=== PATIENT | male | born 1975 | race Caucasian/White ===

== ENCOUNTER 2017-01-17 14:13 | Emergency (ER) | payer OTHER ==
[2017-01-17 14:27] VITALS: RESP 18
--- NOTE | 2017-01-17 14:48 | EDPHY ---
H & P Stated Complaint: left groin pain and swelling for 2 days. Time Seen by Provider: 01/17/17 14:48 HPI/ROS: CHIEF COMPLAINT: Left testicular pain, swelling and inguinal pain HISTORY OF PRESENT ILLNESS: The patient presents the ED with a 2 day history of left testicular pain, posterior testicular tenderness and inguinal pain. The patient denies any hematuria or dysuria. The patient denies any recent sexual intercourse. The patient denies any urethral discharge. The patient has no complaints of flank pain, abdominal pain, history of trauma, prolonged bike riding, prolonged immobility or other genitourinary trauma. He denies any recent surgical history. He does have a history of bilateral hip arthroplasty 5 years ago. REVIEW OF SYSTEMS: A comprehensive 10 point review of systems is otherwise negative aside from elements mentioned in the history of present illness. Source: Patient - Personal History Current Tetanus Diphtheria and Acellular Pertussis (TDAP): Unsure - Medical/Surgical History Hx Asthma: No Hx Chronic Respiratory Disease: No Hx Diabetes: No Hx Cardiac Disease: No Hx Renal Disease: No Hx Cirrhosis: No Hx Alcoholism: No Hx HIV/AIDS: No Hx Splenectomy or Spleen Trauma: No Other PMH: Anxiety, depression. - Social History Smoking Status: Current some day smoker - Physical Exam Exam: General Appearance: Alert, no distress Eyes: Pupils equal and round no pallor or injection ENT, Mouth: Mucous membranes moist Respiratory: There are no retractions, lungs are clear to auscultation Cardiovascular: Regular rate and rhythm Gastrointestinal: Abdomen is soft and nontender, no masses, bowel sounds normal Genitourinary: Left epididymal tenderness, normal testicular lie, no clinical evidence of torsion Neurological: A&O, normal motor function, normal sensory exam, normal cranial nerves Skin: Warm and dry, no rashes Musculoskeletal: Neck is supple nontender Extremities: symmetrical, full range of motion Constitutional: Initial Vital Signs Temperature (C) 36.7 C 01/17/17 14:24 Heart Rate 61 01/17/17 14:24 Respiratory Rate 18 01/17/17 14:24 Blood Pressure 110/78 01/17/17 14:24 O2 Sat (%) 97 01/17/17 14:24 O2 Delivery Mode Room Air Allergies/Adverse Reactions: Sulfa (Sulfonamide Antibiotics) Allergy (Verified 01/17/17 14:27) Home Medications: Medication Instructions Recorded Fluconazole [Diflucan] 200 mg PO ONCE #1 tablet 01/17/17 Trazodone HCl 01/17/17 Trileptal 01/17/17 levOFLOXACIN [Levaquin] 500 mg PO DAILY #10 tab 01/17/17 Medical Decision Making - Diagnostics Imaging Results: Imaging Impressions Testicular Ultrasound 01/17/17 14:53 IMPRESSION: 1. Enlarged and hyperemic left epididymis may indicate epididymitis. 2. Left-sided varicocele. 3. Trace hydroceles bilaterally. Dr. Londono discussed these findings by telephone with Paddy Everett on 01/17 at 15:38. ED Course/Re-evaluation: The patient presents to the ED with complaints testicular pain and swelling. The patient does have epididymitis noted clinically and on his ultrasound. There is no ultrasonic evidence of a abscess, torsion or testicular mass. The patient reports that he is not sexually active. The patient will be treated with Levaquin for 10 days. He is advised to use NSAIDs. The patient will be referred to our on-call urologist for further evaluation of any unimproved symptoms. The patient's urinalysis demonstrates no evidence of an infection. The patient has requested a single dose of Diflucan as he is susceptible to oral thrush when using antibiotics. Differential Diagnosis: Differential diagnosis considered includes epididymitis, testicular torsion, testicular abscess, testicular mass - Data Points Laboratory Results: 01/17/17 15:37 Urine Color YELLOW Urine Appearance CLEAR Urine pH 6.0 (5.0-7.5) Ur Specific [place] 1.021 (1.002-1.030) Urine Protein NEGATIVE (NEGATIVE) Urine Ketones NEGATIVE (NEGATIVE) Urine Blood NEGATIVE (NEGATIVE) Urine Nitrate NEGATIVE (NEGATIVE) Urine Bilirubin NEGATIVE (NEGATIVE) Urine Urobilinogen NEGATIVE EU EU (0.2-1.0) Ur Leukocyte Esterase NEGATIVE (NEGATIVE) Urine Glucose NEGATIVE (NEGATIVE) Departure - Departure Disposition: Home, Routine, Self-Care Clinical Impression: Epididymitis, left Condition: Good Instructions: Epididymitis (ED) Additional Instructions: 1. Please take antibiotics as prescribed. 2. Take Ibuprofen or Motrin 600 mg by mouth three times a day. 3. Return to the ED for markedly worsening symptoms. 4. Follow up with your primary care provider as needed. 5. You have been given the number of our on-call urologist, Dr. Mora, for any unimproved symptoms. Referrals: Janina Sr PA [Primary Care Provider] - As per Instructions Primo Mora MD [Medical Doctor] - As per Instructions Prescriptions: levOFLOXACIN [Levaquin] 500 mg PO DAILY #10 tab
[2017-01-17 15:49] LABS: COLOR YELLOW; LEUKOCYTE ESTERASE,URINE NEGATIVE (NEGATIVE); NITRITE,URINE NEGATIVE (NEGATIVE)
[2017-01-17 16:19] VITALS: BP 101/68; PULSE 52; TEMP 97.9; O2SAT 94
== END 2017-01-17 16:24 | disposition home or self-care (01) ==
DX: N45.1 Epididymitis (principal); F17.200 Nicotine dependence, unspecified, uncomplicated

== ENCOUNTER → 2017-04-09 | Outpatient (CLI) | payer OTHER | LOC: FIMAGING 16:14 | PROVIDERS: ATTEND Physician Assistant | DX: N45.1 Epididymitis (principal) ==